=== PATIENT | female | born 1950 | race Caucasian/White ===

== ENCOUNTER 2018-03-13 11:16 | Inpatient (IN) | payer OTHER ==
[~2018-03-13] VITALS: Ht 170.2 cm; Wt 83.7 kg
[~2018-03-13 11:16] MED LIST: ACTOS45 MG PO; ADVIL200 MG PO; AEROECLIPSE1 EACH MC; ALPRAZOLAM0.25 M2 PO; ASPIR 8181 M1 PO; ATENOLOL25 M1 PO; AZITHROMYCIN500 M1 PO; Actos PO; CATAPRES0.1 MG; CATAPRES0.1 MG PO; CATAPRES0.2 MG PO; Catapres PO; EFFIENT10 MG PO; ENDOCET 5-3251 EACH PO; Ecotrin PO; Effient PO; FLEXERIL10 MG PO; FLOVENT DISKUS1 DISK IH; Flexeril PO; Flovent 110 mcg IH; GLIPIZIDE5 M1 PO; GLUCOPHAGE1000 MG PO; Glucophage PO; IPRATR-ALBUTEROL3 ML IH; JANUVIA100 MG PO; LO-DOSE ASPIRIN81 M1 PO; LYRICA100 MG PO; LYRICA25 MG PO; Lyrica PO; METFORMIN HCL500 M2 PO; MUCINEX600 MG PO; NIACIN 50 MG TA50 MG; PREDNISONE20 MG PO; PROVENTIL HFA6.7 GM IH; Percocet 5/325,Endoc PO; Proventil,Ventolin H IH; SERTRALINE HCL50 MG; SINGULAIR10 MG PO; SLEEP AID25 M2 PO; SLEEP AIDE PO; Singulair PO; TENORETIC 501 TABLET PO; TESSALON200 MG PO; Tenoretic 50 PO; Tessalon Perle PO; VOLTAREN75 MG PO; XANAX1 MG PO; XYZAL5 MG PO; Xanax PO; ZIPSOR25 MG PO; ZOCOR40 MG PO; ZOFRAN4 MG PO; ZOLOFT100 MG PO; ZOLOFT50 MG PO; Zocor PO; Zoloft PO
[2018-03-13 11:57] LABS: HEMATOCRIT 38.1 % (36.0-46.0); HEMOGLOBIN 12.9 G/DL (11.9-15.5); MCH 27.8 PG (29.0-34.0); MCHC 33.9 G/DL (30.0-36.0); MCV 82.1 FL (83-99); PLATELET COUNT 246 K/uL (156-360); RBC DIS.WIDTH-CV 15.1 % (11.8-14.6); RBC DIS.WIDTH-SD 45.3 % (39-53); RED BLOOD COUNT 4.64 M/uL (3.80-5.20); WHITE BLOOD COUNT 20.1 K/uL (4.1-10.2)
[2018-03-13 12:06] LABS: ALBUMIN 4.1 g/dL (3.2-4.8); CHLORIDE 91 mEq/L (99-109); POTASSIUM 3.3 mEq/L (3.7-5.4); SODIUM 126 mEq/L (136-147)
[2018-03-13 12:07] LABS: MAGNESIUM 1.4 mg/dL (1.3-2.7)
[2018-03-13 12:09] LABS: GLUCOSE 235 mg/dL (70-99); TOTAL PROTEIN 7.4 g/dL (6.4-8.3)
[2018-03-13 12:11] LABS: TOTAL BILIRUBIN 0.8 mg/dL (0.0-1.0)
[2018-03-13 12:12] LABS: ALKALINE PHOSPHATASE 64 IU/L (3-129)
[2018-03-13 12:13] LABS: CREATININE 0.7 mg/dL (0.6-1.3); GFR ESTIMATE (CALCULATED) > 59 mL/min/
[2018-03-13 12:14] LABS: AST (GOT) 11 IU/L (2-34); UREA NITROGEN (BUN) 6 mg/dL (9-23)
[2018-03-13 12:15] LABS: ALT (GPT) 10 IU/L (3-49)
[2018-03-13 12:19] LABS: TROP-I INTERPRETATION NEGATIVE; TROPONIN-I 0.02 ng/mL (0.0-0.30)
[2018-03-13 13:02] LABS: ABS NEUTROPHIL COUNT 16.4; ATYPICAL LYMPHOCYTE 2.6 %; BAND NEUTROPHILS 1.8 % (0-8.0); EOSINOPHIL ABS CT 0; LYMPHOCYTES 9.6 % (15.0-45.0); MONOCYTES 5.3 % (0-9.0); MYELOCYTES 0.9 %; SEG.NEUTROPHILS 79.8 % (46.0-76.0); SMUDGE CELLS 3.5
[2018-03-13 16:27] VITALS: BP 134/64
[2018-03-13 20:11] VITALS: BP 120/58
[2018-03-14] VITALS (7 sets, daily range): BP systolic 126–174; BP diastolic 58–84
[2018-03-14 09:27] LABS: COMMENTS - BLOOD GASES A+C+; SITE RR
[2018-03-14 09:29] LABS: DEVICE NC; O2 FLOW 4 L/MIN
[2018-03-14 09:30] LABS: BASE EXCESS 1.1 mEq/L (-3 to +3); BICARBONATE 27.1 mEq/L (22-26); CARBOXY HGB 1.8 % (0-5); METHEMOGLOBIN 1.2 % (0-1.5); PCO2 48 mm Hg (35-45); PO2 54 mm Hg (80-100); pH 7.36 (7.35-7.45)
[2018-03-14 09:45] LABS: HEMATOCRIT 35.8 % (36.0-46.0); HEMOGLOBIN 11.6 G/DL (11.9-15.5); MCHC 32.4 G/DL (30.0-36.0); MCV 83.3 FL (83-99); PLATELET COUNT 245 K/uL (156-360); RBC DIS.WIDTH-CV 15.4 % (11.8-14.6); RBC DIS.WIDTH-SD 46.8 % (39-53)
[2018-03-14 10:01] LABS: HEMOGLOBIN A1c (GLYCOHEMOGLOB) 6.9 % (Below 5.7)
[2018-03-14 10:07] LABS: CHLORIDE 94 MEQ/L (99-109); CREATININE 0.5 MG/DL (0.6-1.3); GFR ESTIMATE (CALCULATED) > 59 mL/min/; GLUCOSE 208 mg/dL (70-99); POTASSIUM 3.4 MEQ/L (3.7-5.4); SODIUM 132 MEQ/L (136-147); UREA NITROGEN (BUN) 10 mg/dL (9-23)
[2018-03-14] MEDS ORDERED: PLAVIX75 MG PO (14:00)
[2018-03-14] MEDS ORDERED: MELOXICAM15 MG PO (14:00)
[2018-03-14] MEDS ORDERED: COZAAR50 MG PO (14:01)
[2018-03-14] MEDS ORDERED: DUONEB 2.5-0.5 M3 ML AEROSOL (14:02)
[2018-03-14] MEDS ORDERED: TRULICITY0.75 MG/0. SC (14:03)
[2018-03-14] MEDS ORDERED: BUPROPION HCL150 M2 PO (14:05)
[2018-03-14] MEDS ORDERED: ATENOLOL100 MG PO (14:07)
[2018-03-15 04:00] VITALS: BP 129/59
[2018-03-15 06:02] LABS: BASOPHIL (%) 0.1 % (0-1); EOSINOPHIL (%) 0 % (0-5); HEMATOCRIT 37.6 % (36.0-46.0); HEMOGLOBIN 12.1 G/DL (11.9-15.5); IMMATURE GRANULOCYTE (%) 1.3 % (0.0-0.7); LYMPHOCYTE (%) 6.1 % (15-42); LYMPHOCYTE COUNT 1.3 K/uL (1.0-2.8); MCH 26.9 PG (29.0-34.0); MCHC 32.2 G/DL (30.0-36.0); MCV 83.7 FL (83-99); MONOCYTE (%) 4.1 % (3-12); MONOCYTE COUNT 0.8 K/uL (0-0.8); NEUTROPHIL (%) 88.4 % (45-76); RBC DIS.WIDTH-CV 15.6 % (11.8-14.6); RBC DIS.WIDTH-SD 47.7 % (39-53); RED BLOOD COUNT 4.49 M/uL (3.80-5.20); WHITE BLOOD COUNT 20.4 K/uL (4.1-10.2)
[2018-03-15 06:11] LABS: PLATELET COUNT 324 K/uL (156-360)
[2018-03-15 06:34] LABS: ALBUMIN 3.7 G/DL (3.2-4.8); ALKALINE PHOSPHATASE 52 IU/L (3-129); ALT (GPT) 15 IU/L (3-49); AST (GOT) 17 IU/L (2-34); CHLORIDE 95 MEQ/L (99-109); CREATININE 0.6 MG/DL (0.6-1.3); GFR ESTIMATE (CALCULATED) > 59 mL/min/; GLUCOSE 281 mg/dL (70-99); SODIUM 132 MEQ/L (136-147); TOTAL BILIRUBIN 0.3 MG/DL (0.0-1.0); TOTAL PROTEIN 6.7 G/DL (6.4-8.3); UREA NITROGEN (BUN) 13 mg/dL (9-23)
[2018-03-15 07:46] VITALS: BP 130/60
[2018-03-15 15:52] VITALS: BP 177/73
[2018-03-16 00:45] VITALS: BP 163/73
[2018-03-16 04:00] VITALS: BP 134/62
[2018-03-16 07:01] VITALS: BP 149/68
[2018-03-16 11:06] VITALS: BP 130/60
[2018-03-16 15:28] VITALS: BP 178/74
[2018-03-16 20:13] VITALS: BP 144/64
[2018-03-17 00:23] VITALS: BP 173/77
[2018-03-17 04:00] VITALS: BP 156/68
[2018-03-17 07:24] VITALS: BP 176/79
[2018-03-17 09:38] LABS: HEMATOCRIT 41.1 % (36.0-46.0); HEMOGLOBIN 13.2 G/DL (11.9-15.5); MCH 26.5 PG (29.0-34.0); MCHC 32.1 G/DL (30.0-36.0); MCV 82.5 FL (83-99); PLATELET COUNT 408 K/uL (156-360); RBC DIS.WIDTH-CV 15.8 % (11.8-14.6); RBC DIS.WIDTH-SD 47.6 % (39-53); RED BLOOD COUNT 4.98 M/uL (3.80-5.20); WHITE BLOOD COUNT 16.8 K/uL (4.1-10.2)
[2018-03-17 10:04] LABS: CHLORIDE 97 MEQ/L (99-109); CREATININE 0.6 MG/DL (0.6-1.3); GFR ESTIMATE (CALCULATED) > 59 mL/min/; GLUCOSE 190 mg/dL (70-99); POTASSIUM 3.9 MEQ/L (3.7-5.4); SODIUM 136 MEQ/L (136-147); UREA NITROGEN (BUN) 11 mg/dL (9-23)
[2018-03-17 11:13] VITALS: BP 155/69
[2018-03-17 15:06] VITALS: BP 179/73
[2018-03-17 23:35] VITALS: BP 150/67
[2018-03-18 06:06] LABS: HEMATOCRIT 37.6 % (36.0-46.0); HEMOGLOBIN 12.4 G/DL (11.9-15.5); MCH 27.4 PG (29.0-34.0); NRBC (%) 0.1 /100 WBC (0-0); PLATELET COUNT 368 K/uL (156-360); RBC DIS.WIDTH-CV 15.9 % (11.8-14.6); RED BLOOD COUNT 4.53 M/uL (3.80-5.20); WHITE BLOOD COUNT 16.5 K/uL (4.1-10.2)
[2018-03-18 06:18] LABS: CHLORIDE 99 MEQ/L (99-109); CREATININE 0.6 MG/DL (0.6-1.3); GFR ESTIMATE (CALCULATED) > 59 mL/min/; GLUCOSE 163 mg/dL (70-99); POTASSIUM 3.6 MEQ/L (3.7-5.4); SODIUM 138 MEQ/L (136-147); UREA NITROGEN (BUN) 12 mg/dL (9-23)
[2018-03-18 07:20] LABS: ABS NEUTROPHIL COUNT 13.2; ANISOCYTOSIS 1+; ATYPICAL LYMPHOCYTE 0.8 %; BAND NEUTROPHILS 1.7 % (0-8.0); EOSINOPHIL ABS CT 0.3; EOSINOPHILS 1.7 % (0-5.0); HYPERSEGMENTATION 1+; HYPOCHROMASIA 1+; LYMPHOCYTES 13.8 % (15.0-45.0); METAMYELOCYTES 0.9 %; MONOCYTES 2.6 % (0-9.0); OVALOCYTES 1+; PLAT.SUFFICIENCY ADEQUATE; POLYCHROMASIA 1+; SEG.NEUTROPHILS 78.5 % (46.0-76.0)
[2018-03-18 07:49] VITALS: BP 174/75
[2018-03-18] MEDS ORDERED: PREDNISONE20 MG PO (11:31)
[2018-03-18] MEDS ORDERED: AUGMENTIN875 MG PO (11:31)
== END 2018-03-18 13:03 | disposition home or self-care (01) | DRG 193 ==
LOC: EME 11:16 → 5SOUTH 14:45 → EDOF 14:45 → ENRESERV 14:54 → 5SOUTH 16:09
PROVIDERS: Emergency Medicine; Hospitalist
DX: J18.9 Pneumonia, unspecified organism (principal); J44.0 Chronic obstructive pulmonary disease with (acute) lower respiratory infection; J96.01 Acute respiratory failure with hypoxia; J44.1 Chronic obstructive pulmonary disease with (acute) exacerbation; E87.1 Hypo-osmolality and hyponatremia; I25.10 Atherosclerotic heart disease of native coronary artery without angina pectoris; E87.6 Hypokalemia; I10 Essential (primary) hypertension; E78.5 Hyperlipidemia, unspecified; F41.9 Anxiety disorder, unspecified; E11.65 Type 2 diabetes mellitus with hyperglycemia; T38.0X5A Adverse effect of glucocorticoids and synthetic analogues, initial encounter; J20.9 Acute bronchitis, unspecified; F17.210 Nicotine dependence, cigarettes, uncomplicated; Z79.84 Long term (current) use of oral hypoglycemic drugs; I25.2 Old myocardial infarction; Z95.5 Presence of coronary angioplasty implant and graft; Z85.41 Personal history of malignant neoplasm of cervix uteri; Y92.230 Patient room in hospital as the place of occurrence of the external cause
CPT/HCPCS: 36600; 71046; 71275; 80048; 80053; 81003; 82803; 82948; 83036; 83605; 83735; 83880; 84484; 85025; 85027; 87040; 93005; 93306; 94010; 94640; 94640 76; 94799; 99202; 99281; 99285; J0456; J0696; J1650; J1815; J2543; J2920; J2930; J3370; J7050; J7512